=== PATIENT | female | born 1990 | race Caucasian/White ===

== ENCOUNTER 2016-09-19 14:03 | Emergency (ER) | payer SELFPAY | END 2016-09-19 14:25 | disposition home or self-care (01) | LOC: BURERS 14:03 | DX: H92.02 Otalgia, left ear (principal); F17.210 Nicotine dependence, cigarettes, uncomplicated | CPT/HCPCS: 99282 ==

== ENCOUNTER 2018-02-17 10:38 | Outpatient (CLI) | payer OTHER ==
--- NOTE | 2018-02-17 20:23 | ULT ---
PELVIC ULTRASOUND WITH ENDOVAGINAL IMAGIN02/17/2018 HISTORY/TECHNIQUE: Ultrasonography of the pelvis was performed. The patient does not image extremely well. Because of this, both transabdominal and endovaginal imaging were needed. FINDINGS: The uterus measures 7.9 x 3.2 x 3.6 cm. The endometrium is a normal 6 mm wide. The right ovary is only seen on the transabdominal images. It is 2.1 cm wide with blood flow noted. No masses or cysts are seen. The left ovary could not be seen. No free fluid is noted. An inciden evelyn finding is a 9 cm long pelvic kidney, on the right side, a known entity in this patient. IMPRESSION: 1. No findings to explain the patient's pelvic pain. 2. Right-sided pelvic kidney. 3. Left ovary not seen. POS: HOME
== END 2018-02-17 10:39 | disposition home or self-care (01) ==
LOC: BURULT 10:38
PROVIDERS: ATTEND Family Medicine
DX: R10.2 Pelvic and perineal pain (principal)
CPT/HCPCS: 76856

== ENCOUNTER 2019-03-11 23:38 | Emergency (ER) | payer OTHER, SELFPAY ==
--- NOTE | 2019-03-12 10:31 | RAD ---
AP PORTABLE CHEST ONE VIEW: 03/12/2019 0023 HOURS COMPARISON: 04/03/2012 FINDINGS: The heart is normal in size and the lungs are clear. No infiltrates or effusion is seen. There is no sign of pneumonia IMPRESSION: No acute thoracic findings. POS: HOME
== END 2019-03-12 00:42 | disposition home or self-care (01) ==
LOC: BURERS 23:38
DX: J06.9 Acute upper respiratory infection, unspecified (principal); R06.2 Wheezing; F17.210 Nicotine dependence, cigarettes, uncomplicated
CPT/HCPCS: 71045; 87804; J7620

== ENCOUNTER 2021-02-14 18:26 | Emergency (ER) | payer MEDICAID, SELFPAY ==
[2021-02-14] MEDS ORDERED: Promethazine 25 MG TAB ONE (18:48)
[2021-02-14] MEDS ORDERED: Acetaminophen 500 MG TAB ONE (18:57)
[2021-02-15 08:44] LABS: SARS-CoV-2 PCR by NAA DETECTED (NotDetected)
== END 2021-02-14 19:15 | disposition home or self-care (01) ==
LOC: BURERS 18:26
DX: U07.1 COVID-19 (principal); F17.210 Nicotine dependence, cigarettes, uncomplicated
CPT/HCPCS: 99284; Q0169; U0003; U0005

== ENCOUNTER 2021-03-18 15:14 | Emergency (ER) | payer SELFPAY ==
[2021-03-18] MEDS ORDERED: Ibuprofen 800 MG TAB ONE (16:02)
[2021-03-18] MEDS ORDERED: Bicillin LA 1.2 MILLION UNITS/2 ML SYRINGE ONE (16:44)
== END 2021-03-18 17:14 | disposition home or self-care (01) ==
LOC: BURERS 15:14
DX: J02.0 Streptococcal pharyngitis (principal); F17.210 Nicotine dependence, cigarettes, uncomplicated
CPT/HCPCS: 87430; 96372; 99283; J0561

== ENCOUNTER 2021-09-30 23:17 | Emergency (ER) | payer MEDICAID, SELFPAY | END 2021-10-01 00:35 | disposition home or self-care (01) | LOC: BURERS 23:17 | DX: B34.9 Viral infection, unspecified (principal) | CPT/HCPCS: 87804; 99283 ==

== ENCOUNTER 2022-03-07 18:53 | Emergency (ER) | payer SELFPAY ==
[2022-03-07 19:17] LABS: Bilirubin Small (Negative); Blood, Urine Negative (Negative); Clarity Cloudy (Clear); Glucose, Urine (Dipstick) Negative (Negative); Ketone, Urine Negative (Negative); Leukocyte Negative (Negative); Nitrite Negative (Negative); Protein, Urine (Dipstick) Negative (Neg-Trace)
[2022-03-07 19:18] LABS: Specific Gravity, Urine 1.025 (1.002-1.036)
[2022-03-07 19:19] LABS: Pregnancy Test - Urine (BHCG) Negative (Negative); Pregu Control Background? CLEAR/WHITE (CLR/WHITE); Pregu Control Bar Appear? YES (CONTROL BAR); Specific Gravity 1.025 (1.002-1.036)
[2022-03-07 19:41] LABS: #Basophils 0.1 thou/uL (0.0-0.2); #Eosinphils 0.2 thou/uL (0.0-0.7); #Lymphocytes 2.2 thou/uL (1.20-3.40); #Monocytes 0.4 thou/uL (0.11-0.59); #Neutrophils 5.3 thou/uL (1.40-6.50); %Basophils 0.8 % (0.0-1.0); %Eosinophils 2.5 % (0.0-10.0); %Lymphocytes 26.9 % (21.0-51.0); %Monocytes 4.9 % (0.0-10.0); %Neutrophils 64.9 % (42.0-75.0); Hemoglobin 15.2 g/dL (12.0-16.0); Mean Corpuscular HGB CONC 32.5 g/dL (32.0-36.0); Mean Corpuscular Hemoglobin 29.4 pg (27.0-31.0); Mean Corpuscular Volume 90.6 fl (78.0-98.0); Platelet Count 316 10x3/uL (130-400); RBC Distribution Width 12.3 % (11.5-14.5); Red Blood Cell (RBC) Count 5.17 mill/uL (4.20-5.40); White Blood Cell (WBC) Count 8.1 10x3/uL (4.8-10.8)
[2022-03-07 19:55] LABS: ALT (SGPT) 24 U/L (8-55); AST (SGOT) 18 U/L (5-34); Albumin 4.2 g/dL (3.5-5.0); Alkaline Phosphatase 89 U/L (40-110); Anion Gap 12 mmol/L (10-20); BUN (Urea Nitrogen) 6 mg/dL (7.0-18.7); Bilirubin, Total 0.4 mg/dL (0.2-1.2); Calc. Creatinine Clearance 0 mL/min (70-130); Calcium 9.2 mg/dL (7.8-10.44); Carbon Dioxide 26 mmol/L (22-29); Chloride 103 mmol/L (98-107); Estimated GFR 89; Globulin 3.6 g/dL (2.4-3.5); Glucose 105 mg/dL (70-105); Lipase 10 U/L (8-78); Potassium 3.7 mmol/L (3.5-5.1); Protein, Total 7.8 g/dL (6.0-8.3); Sodium 137 mmol/L (136-145)
[2022-03-07] MEDS ORDERED: Magnesium 2 GM/50 ML BAG (IN WATER) ONE (20:05)
[2022-03-07] MEDS ORDERED: Pantoprazole 40 MG VIAL ONE (20:05)
[2022-03-07] MEDS ORDERED: Lidocaine Viscous Sol 2% 15 ml UD Cup ONE (20:05)
[2022-03-07] MEDS ORDERED: Milk Of Magnesia 30 ML UDCUP ONE (20:05)
== END 2022-03-07 21:38 | disposition home or self-care (01) ==
LOC: BURERS 18:53
DX: K29.70 Gastritis, unspecified, without bleeding (principal)
CPT/HCPCS: 74177; 80053; 81003; 81025; 83690; 85025; 96374; C9113; J3475